=== PATIENT | male | born 1955 | race Caucasian/White ===

== ENCOUNTER 2022-08-20 10:39 | Emergency (ER) | payer MEDICARE, SELFPAY ==
[2022-08-20] VITALS (11 sets, daily range): BP systolic 105–126; BP diastolic 72–82; PULSE 67–80; RESP 18; TEMP 36.6; O2SAT 94–98; BMI 33.1
--- NOTE | 2022-08-20 11:07 | ED.ABDPAIN ---
HPI - Abdominal Pain General Time Seen by Provider: 11:07 Date Seen: 08/20/22 Chief Complaint: Abdominal Pain Stated Complaint: Abdominal pain Time Seen by Provider: 08/20/22 11:06 Source: patient, RN notes reviewed and old records reviewed Mode of arrival: ambulatory Limitations: no limitations History of Present Illness HPI narrative: Mr. Baeza is a very pleasant 66-year-old gentleman with a history of prostatitis, CABG with pacer placement, cholecystectomy, appendectomy who comes to the emergency room from the [facility] for evaluation of right lower quadrant pain. Patient notes that he has been dealing with a sore low back and had planned on seeing his primary MD Dr. Gomez in the near future. He states that he was pushing snow off the driveway but denies that it was anything significant when he had the onset of some discomfort in the right lateral and right lower abdomen yesterday afternoon. He states that he thought he may have pulled a muscle. However the pain increased and required Tylenol last night which she states did not really help. He has been noticing that he has had more loose stools than normal but no blood in those stools. He has not had any Tylenol today. He denies nausea or vomiting but does endorse feeling somewhat bloated. He has had in 8-10 lb weight gain over the winter but otherwise no other bag health events. He has not had diverticulitis, colitis, ulcerative colitis, Crohn's in the past. He notes that movement does increase his pain and taking a deep breath increases his discomfort. Related Data Home Medications Medication Instructions Recorded Confirmed atorvastatin 40 mg tablet 40 mg PO DAILY 08/20/22 08/20/22 baby aspirin 81 mg PO DAILY 08/20/22 08/20/22 carvedilol 12.5 mg tablet 12.5 mg PO BID 08/20/22 08/20/22 esomeprazole magnesium 20 mg 20 mg PO DAILY 08/20/22 08/20/22 capsule,delayed release (Nexium) hydrochlorothiazide 12.5 mg tablet 12.5 mg PO DAILY 08/20/22 08/20/22 losartan 100 mg tablet 50 mg PO DAILY 08/20/22 08/20/22 tamsulosin 0.4 mg capsule 0.4 mg PO DAILY 08/20/22 08/20/22 Allergies Allergy/AdvReac Type Severity Reaction Status Date / Time ciprofloxacin [From Cipro] Allergy Mild hepatic Verified 08/20/22 12:35 dysfunction lisinopril Allergy Mild Cough Verified 08/20/22 12:35 ofloxacin [From Floxin] Allergy itchy Verified 08/20/22 12:35 bactrim DS Allergy Mild Cholestatic Uncoded 08/20/22 12:35 hepatitis Review of Systems Status of ROS Reports: 10 or more systems reviewed and unremarkable except as noted in History and below Const Denies: fever, chills or night sweats ENMT Denies: throat pain, neck pain, difficulty swallowing or hoarseness Cardio Denies: chest pain, palpitations, swelling of feet/ankles, lightheadedness or shortness of breath with exertion Resp Denies: shortness of breath, cough or wheezing GI Reports: abdominal pain and diarrhea (Described as loose stools); Denies: nausea, vomiting, difficulty swallowing or blood in stool Denies: painful urination Musculo Reports: back pain; Denies: neck pain or extremity pain Neuro Denies: headache Allergy/Immuno Denies: wheezing PFSH PFSH Surgical History (Updated 08/20/22 @ 12:02 by Adelina Villalta MD) History of cholecystectomy ?Z90.49 - Acquired absence of other specified parts of digestive tract (ICD-10) Hx of appendectomy ?Z90.49 - Acquired absence of other specified parts of digestive tract (ICD-10) Hx of CABG ?Z95.1 - Presence of aortocoronary bypass graft (ICD-10) Social History Smoking Status: Never smoker Do you use any of these nicotine containing products: E-Cigarettes Second hand tobacco smoke exposure: No How often do you have a drink containing alcohol: monthly or less How many standard drinks containing alcohol do you have on a typical day: 1 or 2 How often do you have six or more drinks on one occasion: Never AUDIT-C Alcohol total score: 1 Non-prescribed substance use: denies use Exam Narrative: Exam Narrative: Alert and oriented. No acute distress. Somewhat guarded with movement. External ears eyes nose clear. Head is atraumatic normocephalic. Neck is supple no lymphadenopathy. Heart with regular rate and rhythm. Lungs are clear. Abdomen shows tenderness in the right lateral and right lower quadrant. Abdomen is obese but it is soft. No obvious hernias noted. Lower extremities with no edema. Moving all extremities. Const: Vital Signs, click to edit/add: Vital Signs - 24 hr 08/20/22 10:51 08/20/22 12:26 08/20/22 12:27 Temperature 97.8 F Pulse Rate 67 68 Pulse Rate [Right Pulse Oximeter] 80 Respiratory Rate 18 Blood Pressure 105/78 Blood Pressure [Ri ght Upper Arm] 126/82 Pulse Oximetry 97 97 97 Oxygen Delivery Me thod Room Air 08/20/22 12:30 08/20/22 12:31 08/20/22 12:45 Temperature Pulse Rate 68 67 67 Pulse Rate [Right Pulse Oximeter] Respiratory Rate Blood Pressure 107/76 Blood Pressure [Ri ght Upper Arm] Pulse Oximetry 95 95 98 Oxygen Delivery Me thod 08/20/22 13:00 08/20/22 13:01 08/20/22 13:15 Temperature Pulse Rate 70 71 68 Pulse Rate [Right Pulse Oximeter] Respiratory Rate Blood Pressure 107/72 Blood Pressure [Ri ght Upper Arm] Pulse Oximetry 94 95 95 Oxygen Delivery Me thod 08/20/22 13:30 08/20/22 13:32 Temperature Pulse Rate 69 69 Pulse Rate [Right Pulse Oximeter] Respiratory Rate Blood Pressure 111/73 Blood Pressure [Ri ght Upper Arm] Pulse Oximetry 96 97 Oxygen Delivery Me thod Documenting provider has reviewed patient's vital signs: yes Course Course Hospital Course: Differential diagnosis includes but is not limited to ureteral stone, pyelonephritis, UTI, colitis, internal hernia, diverticulitis, musculoskeletal discomfort. Will place an IV and patient will have CBC, comprehensive, CRP, lipase, urinalysis done. Patient is declining pain medications at this time. Will have him undergo CT of the abdomen and pelvis with contrast. Vital Signs Vital signs: Initial Vital Signs Temperature 97.8 F 08/20/22 10:51 Temperature Source Temporal Artery Scan 08/20/22 10:51 Pulse Rate 80 08/20/22 10:51 Respiratory Rate 18 08/20/22 10:51 Blood Pressure 126/82 08/20/22 10:51 Blood Pressure Mean 96 08/20/22 10:51 Blood Pressure Position Sitting 08/20/22 10:51 Pulse Oximetry 97 08/20/22 10:51 Oxygen Delivery Method Room Air 08/20/22 10:51 Vital Signs Temperature 97.8 F 08/20/22 10:51 Pulse Rate 80 08/20/22 10:51 Respiratory Rate 18 08/20/22 10:51 Blood Pressure 126/82 08/20/22 10:51 Pulse Oximetry 97 08/20/22 10:51 Oxygen Delivery Method Room Air 08/20/22 10:51 Temperature 97.8 F 08/20/22 10:51 Pulse Rate 69 08/20/22 13:32 Respiratory Rate 18 08/20/22 10:51 Blood Pressure 111/73 08/20/22 13:32 Pulse Oximetry 97 08/20/22 13:32 Oxygen Delivery Method Room Air 08/20/22 10:51 MDM - Abdominal Pain MDM Narrative Medical decision making narrative: 1. Abdominal pain-CT is reassuring with no evidence of colitis, kidney stone, hydronephrosis or other abnormality. Patient's laboratory values also reassuring with normal white count and CRP as well as urinalysis. Continue ibuprofen or Tylenol as needed for discomfort. Icing as needed. Follow-up with primary MD for ongoing discomfort. This seems more musculoskeletal than radicular in my assessment. This should improve over the next few days. 2. Disposition-home at this time. Return as needed. Medical Records Attestation: I reviewed the patient's medical records. Lab Data Attestation: I reviewed the patient's lab results. Labs: Lab Results 08/20/22 08/20/22 Range/Units 11:08 11:28 WBC 7.97 (4.50-11.00) K/uL RBC 5.60 (4.30-5.90) m/uL Hgb 15.8 (13.5-17.5) gm/dL Hct 45.2 (37.0-53.0) % MCV 81 (80-100) fL MCH 28 (26-34) pg MCHC 35 (32-36) gm/dL RDW Coeff of Jordi 13.2 (11.5-15.5) % Plt Count 147 (140-440) K/uL Neut % (Auto) 74.0 H (42.0-72.0) % Lymph % (Auto) 17.6 L (20-44) % Williamson % (Auto) 6.9 (0.0-11.0) % Eos % (Auto) 1.3 (0.0-7.0) % Baso % (Auto) 0.1 (0.0-3.0) % Neut # (Auto) 5.90 (1.7-7.0) K/uL Lymph # (Auto) 1.40 (0.90-2.90) K/uL Williamson # (Auto) 0.50 (0.00-0.90) K/UL Eos # (Auto) 0.10 (0.00-0.50) K/uL Baso # (Auto) 0.01 (0.00-0.30) K/uL Sodium 139 (135-149) mmol/L Potassium 4.1 (3.6-5.1) mmol/L Chloride 104 (96-114) mmol/L Carbon Dioxide 29 (20-32) mmol/L BUN 13 (7-30) mg/dL Creatinine 1.0 (0.5-1.5) mg/dL Estimated Creat Clear 71.25 Estimated GFR 84 ml/min Glucose 93 (60-115) mg/dL Calcium 8.9 (8.4-10.6) mg/dL Total Bilirubin 1.5 (0.1-1.5) mg/dL AST 20 (12-35) U/L ALT 33 (4-50) U/L Alkaline Phosphatase 45 (40-150) U/L C-Reactive Protein 0.7 (0.5-1.0) mg/dL Total Protein 7.1 (6.0-8.3) g/dL Albumin 4.3 (3.3-5.0) g/dL Lipase 79 (23-300) U/L Urine Color Light yellow (Yellow) Urine Appearance Clear (Clear) Urine pH 6.5 (5.0-8.5) Ur Specific [place] 1.010 (1.000-1.030) Urine Protein Negative (Negative) Urine Glucose (UA) Negative (Negative) Urine Ketones Negative (Negative) Urine Blood Negative (Negative) Urine Nitrite Negative (Negative) Urine Bilirubin Negative (Negative) Urine Urobilinogen 0.2 (0.2-1.0) Ur Leukocyte Esterase Negative (Negative) Urine RBC 0-2 (0-2) Urine WBC 0-2 (0-5) Ur Squamous Epith Cells None (None-Few) Urine Bacteria None (None) Imaging Data CT scan - abdomen: Attestation: I have reviewed the pertinent imaging results. My impression: I do not see any evidence of ureteral stone or obstruction Radiologist's impression: Lung bases: No suspicious pulmonary nodules or opacities. Linear atelectasis in the bilateral lower lobes. No basilar effusion or pneumothorax. Heart base: No basilar pericardial effusion. Partially visualized fibrillated electrodes and a aortic valve replacement. Abdomen/Pelvis: Liver: Non-cirrhotic morphology. Probable diffuse hepatic steatosis. No suspicious lesion. Gallbladder: Cholecystectomy. Bile ducts: No intra or extrahepatic biliary ductal dilatation. No choledocholithiasis. Spleen: Normal in size. Splenule. Adrenal glands: Unremarkable. Kidneys: Symmetric enhancement with no hydronephrosis or nephrolithiasis bilaterally. Right upper pole simple cyst measuring 5.2 x 4.7 cm. Additional bilateral subcentimeter cortical hypodensities are too small to characterize, statistically cysts. Pancreas: Unremarkable. Lymph nodes: No retroperitoneal, mesenteric, inguinal, or pelvic adenopathy by CT criteria. Bowel: Stomach is decompressed, limiting evaluation, but appears grossly normal. Small large bowel is normal in caliber, without obstruction. Appendix is not well visualized; however, there are no acute inflammatory changes in the right lower quadrant. No pneumatosis, pneumoperitoneum or portal venous gas. Vascular structures: No abdominal aortic aneurysm. Mild atherosclerotic calcification of the splenic artery. Proximal visceral vessels are patent. Patent hepatic, portal, splenic and bilateral renal veins. Peritoneum: No abdominal/pelvic ascites. Abdominal Wall: Tiny fat containing umbilical. Urinary bladder: Limited evaluation due to underdistention. No gross pathology. Reproductive structures: Marked prostatomegaly. Postsurgical changes in the bilateral scrotum seen with partially visualized right-sided hydrocele. MSK: No acute fractures. No aggressive appearing lytic or blastic osseous lesion. Minimal multilevel degenerative changes of the spine. IMPRESSION: 1. No acute pathology in the abdomen or pelvis. 2. Appendix is not well visualized; however, there are no acute inflammatory changes in the right lower quadrant. 3. Cholecystectomy. No intra or extrahepatic biliary ductal dilatation. 4. Probable diffuse hepatic steatosis. Discharge Plan Discharge Clinical Impression: Abdominal pain Patient Disposition: Home, Self-Care Condition: Improved Additional Instructions: Recommend ibuprofen or Tylenol as needed for discomfort. Icing of the area as needed. Follow-up with your primary MD for ongoing issues. Please return to the emergency room for worsening pain, onset of new symptoms and as needed. Prescriptions: No Action atorvastatin 40 mg tablet 40 mg PO DAILY carvedilol 12.5 mg tablet 12.5 mg PO BID losartan 100 mg tablet 50 mg PO DAILY hydrochlorothiazide 12.5 mg tablet 12.5 mg PO DAILY tamsulosin 0.4 mg capsule 0.4 mg PO DAILY esomeprazole magnesium [Nexium] 20 mg capsule,delayed release(DR/EC) 20 mg PO DAILY baby aspirin 81 mg PO DAILY Follow Up/Referrals: Ash Gomez MD [Primary Care Provider] - Stand Alone Forms: [facility] Info Instructions
[2022-08-20 11:18] LABS: Appearance Urine Clear (Clear); Bilirubin Urine Negative (Negative); Blood Urine Negative (Negative); Color Urine Light yellow (Yellow); Glucose Urine Negative (Negative); Ketones Urine Negative (Negative); Leukocyte Esterase Urine Negative (Negative); Nitrite Urine Negative (Negative); Protein Urine Negative (Negative); Urobilinogen Urine 0.2 (0.2-1.0); pH Urine 6.5 (5.0-8.5)
--- NOTE | 2022-08-20 11:28 | CRLHL7_ITS ---
For Patients: As a result of the Century Cures Act, medical imaging exams and procedure reports are released immediately into your electronic medical record. You may view this report before your referring provider. If you have questions, please contact your health care provider. INDICATION: Acute right lower/lateral abdominal pain TECHNIQUE: Contrast-enhanced CT of the abdomen and pelvis was obtained after administration of 100 cc Isovue 370 IV. Coronal and sagittal reformats were obtained on an independent workstation. COMPARISON: None. FINDINGS: Chest: Lung bases: No suspicious pulmonary nodules or opacities. Linear atelectasis in the bilateral lower lobes. No basilar effusion or pneumothorax. Heart base: No basilar pericardial effusion. Partially visualized fibrillated electrodes and a aortic valve replacement. Abdomen/Pelvis: Liver: Non-cirrhotic morphology. Probable diffuse hepatic steatosis. No suspicious lesion. Gallbladder: Cholecystectomy. Bile ducts: No intra or extrahepatic biliary ductal dilatation. No choledocholithiasis. Spleen: Normal in size. Splenule. Adrenal glands: Unremarkable. Kidneys: Symmetric enhancement with no hydronephrosis or nephrolithiasis bilaterally. Right upper pole simple cyst measuring 5.2 x 4.7 cm. Additional bilateral subcentimeter cortical hypodensities are too small to characterize, statistically cysts. Pancreas: Unremarkable. Lymph nodes: No retroperitoneal, mesenteric, inguinal, or pelvic adenopathy by CT criteria. Bowel: Stomach is decompressed, limiting evaluation, but appears grossly normal. Small large bowel is normal in caliber, without obstruction. Appendix is not well visualized; however, there are no acute inflammatory changes in the right lower quadrant. No pneumatosis, pneumoperitoneum or portal venous gas. Vascular structures: No abdominal aortic aneurysm. Mild atherosclerotic calcification of the splenic artery. Proximal visceral vessels are patent. Patent hepatic, portal, splenic and bilateral renal veins. Peritoneum: No abdominal/pelvic ascites. Abdominal Wall: Tiny fat containing umbilical. Urinary bladder: Limited evaluation due to underdistention. No gross pathology. Reproductive structures: Marked prostatomegaly. Postsurgical changes in the bilateral scrotum seen with partially visualized right-sided hydrocele. MSK: No acute fractures. No aggressive appearing lytic or blastic osseous lesion. Minimal multilevel degenerative changes of the spine. IMPRESSION: 1. No acute pathology in the abdomen or pelvis. 2. Appendix is not well visualized; however, there are no acute inflammatory changes in the right lower quadrant. 3. Cholecystectomy. No intra or extrahepatic biliary ductal dilatation. 4. Probable diffuse hepatic steatosis. Please note that all CT scans at this facility use dose modulation, iterative reconstruction, and/or weight-based dosing when appropriate to reduce radiation dose to as low as reasonably achievable. Dictated by Kwasi Cadena MD @ 08/20/2022 1:35:53 PM (Electronically Signed)
[2022-08-20 11:29] LABS: RBC Urine 0-2 (0-2); WBC Urine 0-2 (0-5)
[2022-08-20 12:00] LABS: Basophils Absolute Auto 0.01 K/uL (0.00-0.30); Basophils Percent Auto 0.1 % (0.0-3.0); Eosinophils Percent Auto 1.3 % (0.0-7.0); Hematocrit 45.2 % (37.0-53.0); Hemoglobin* 15.8 gm/dL (13.5-17.5); Immature Granulocytes Abs Auto 0.01 K/uL (0.00-0.30); Immature Granulocytes Pct Auto 0.1 %; Lymphocytes Percent Auto 17.6 % (20-44); Mean Corpuscular HGB Conc 35 gm/dL (32-36); Mean Corpuscular Hemoglobin 28 pg (26-34); Mean Corpuscular Volume 81 fL (80-100); Monocytes Percent Auto 6.9 % (0.0-11.0); Platelet Count* 147 K/uL (140-440); RDW Coefficient of Variation % 13.2 % (11.5-15.5); White Blood Count* 7.97 K/uL (4.50-11.00)
[2022-08-20 12:12] LABS: Albumin* 4.3 g/dL (3.3-5.0); Chloride* 104 mmol/L (96-114)
[2022-08-20 12:13] LABS: Potassium* 4.1 mmol/L (3.6-5.1); Slide Review Reflex No; Sodium* 139 mmol/L (135-149)
[2022-08-20 12:15] LABS: Est. Creatinine Clearance* 71.25; Estimated Glomerular Filt Rate 84 ml/min
[2022-08-20 12:16] LABS: Alanine Aminotransferase* 33 U/L (4-50); Alkaline Phosphatase* 45 U/L (40-150); Aspartate Amino Transferase* 20 U/L (12-35); Bilirubin Total* 1.5 mg/dL (0.1-1.5); Blood Urea Nitrogen* 13 mg/dL (7-30); Calcium* 8.9 mg/dL (8.4-10.6); Carbon Dioxide* 29 mmol/L (20-32); Glucose* 93 mg/dL (60-115); Lipase* 79 U/L (23-300); Total Protein* 7.1 g/dL (6.0-8.3)
[2022-08-20 12:19] LABS: C Reactive Protein* 0.7 mg/dL (0.5-1.0)
== END 2022-08-20 14:05 | disposition home or self-care (01) ==
PROVIDERS: Emergency Provider Family Medicine; PCP Family Medicine
DX: R10.9 Unspecified abdominal pain (principal)
CPT/HCPCS: 36415; 74177; 80053; 81001; 83690; 85025; 86140; 99284; 99285; Q9967

== ENCOUNTER 2024-05-23 09:16 | Emergency (ER) | payer MEDICARE, SELFPAY ==
[2024-05-23 09:34] VITALS: BP 157/90; PULSE 88; RESP 24; TEMP 36.6; O2SAT 98; BMI 32.7
--- NOTE | 2024-05-23 09:51 | CRLHL7_ITS ---
For Patients: As a result of the Century Cures Act, medical imaging exams and procedure reports are released immediately into your electronic medical record. You may view this report before your referring provider. If you have questions, please contact your health care provider. INDICATION: Cough and dyspnea COMPARISON: May 19, 2024 TECHNIQUE: PA and lateral views of the chest were acquired FINDINGS: TUBES AND LINES: Pacer with leads terminating in the expected location of the right atrium and right ventricle unchanged in position HEART AND MEDIASTINUM: Top-normal size heart. Median sternotomy. Similar appearance to the prior study. LUNGS AND PLEURAL SPACES: The lungs appear normal.The pleural spaces are unremarkable. OSSEOUS STRUCTURES: Age-appropriate appearance. No acute focal finding. IMPRESSION: No evidence of active pulmonary disease. Pacer normally located. Heart size top-normal. Median sternotomy and valve repair. Dictated by Jad Cuenca MD @ 05/23/2024 10:53:44 AM (Electronically Signed)
--- NOTE | 2024-05-23 10:20 | ED_ITS ---
HPI - General Adult General Time Seen by Provider: 10:21 Date Seen: 05/23/24 Chief complaint: Shortness of Breath/Dyspnea Stated complaint: Pneumonia Time Seen by Provider: 05/23/24 09:17 Source: patient and RN notes reviewed Mode of arrival: ambulatory Limitations: no limitations History of Present Illness HPI narrative: This 68-year-old male is coming into the ER with ongoing coughing. He has been on Augmentin since Sunday, did get a 3 day course of prednisone. He did not get a Z-Raúl but has taken this in the past. He has been sick about 10 days now. He had done a negative home COVID swab, they did not test for anything else. He really has not slept more than 2 hours at a time due to the coughing since the onset of this. He is having paroxysm of coughing to the point that he states he almost passes out now. He did not get pertusses testing, reviewed with him that there is currently a pertussis outbreak outbreak in [place]. He has not noted any fevers. He has had his thoracic aorta repaired with grafting, bicuspid valve replaced. He is not on any blood thinners so presumably the valve is tissue. He is supposed to be leaving for [place] tomorrow morning but states he cannot go with this cough. He was seen at [facility] urgent care on Sunday. Patient is not short of breath baseline, only become short of breath when he has the paroxysm is a of coughing. Patient also reports pacemaker. He does note that talking induces coughing. Related Data Home Medications ?Medication ?Instructions ?Recorded ?Confirmed atorvastatin 40 mg tablet 40 mg PO DAILY 08/20/22 08/20/22 baby aspirin 81 mg PO DAILY 08/20/22 08/20/22 carvedilol 12.5 mg tablet 12.5 mg PO BID 08/20/22 08/20/22 esomeprazole magnesium 20 mg 20 mg PO DAILY 08/20/22 08/20/22 capsule,delayed release (Nexium) hydrochlorothiazide 12.5 mg tablet 12.5 mg PO DAILY 08/20/22 08/20/22 losartan 100 mg tablet 50 mg PO DAILY 08/20/22 08/20/22 tamsulosin 0.4 mg capsule 0.4 mg PO DAILY 08/20/22 08/20/22 Previous Rx's ?Medication ?Instructions ?Recorded azithromycin 250 mg tablet See Rx Instructions PO .COMPLEX #6 05/23/24 tabs codeine 10 mg-guaifenesin 100 mg/5 5 - 10 ml PO Q4-6H PRN #120 mL 05/23/24 mL oral liquid (Virtussin AC) Allergies Allergy/AdvReac Type Severity Reaction Status Date / Time ciprofloxacin (From Cipro) Allergy Mild hepatic Verified 08/20/22 12:35 dysfunction lisinopril Allergy Mild Cough Verified 08/20/22 12:35 ofloxacin (From Floxin) Allergy itchy Verified 08/20/22 12:35 bactrim DS Allergy Mild Cholestatic Uncoded 08/20/22 12:35 hepatitis Review of Systems Status of ROS: Reports: 6 or more systems reviewed and unremarkable except as noted in History and below PFSH PFSH Surgical History Hx of appendectomy ?Z90.49 - Acquired absence of other specified parts of digestive tract (ICD- 10) History of cholecystectomy ?Z90.49 - Acquired absence of other specified parts of digestive tract (ICD- 10) Hx of CABG ?Z95.1 - Presence of aortocoronary bypass graft (ICD-10) Social History Smoking Status: Never smoker Do you use any of these nicotine containing products: E-Cigarettes Second hand tobacco smoke exposure: No How often do you have a drink containing alcohol: monthly or less How many standard drinks containing alcohol do you have on a typical day: 1 or 2 How often do you have six or more drinks on one occasion: Never AUDIT-C Alcohol total score: 1 Non-prescribed substance use: denies use Exam Const: Vital Signs, click to edit/add: Vital Signs - 24 hr 05/23/24 09:34 05/23/24 12:06 Temperature 97.8 F Pulse Rate [Pulse Oximeter] 88 80 Respiratory Rate 24 16 Blood Pressure [Ri ght Upper Arm] 157/90 H 152/100 H Pulse Oximetry 98 95 Oxygen Delivery Me thod Room Air Room Air This 68-year-old male is alert, interactive, no apparent distress. Any talking or asking him to breathe ease to listen to his lungs induce is coughing. There is no wheezing, no tachypnea. Lungs actually are clear. Face atraumatic, sclera clear, conjugate gaze. Neck supple, no adenopathy. Speech is normal, not hoarse in between coughing. CV regular, normal S1-S2, has a soft systolic murmur heard upper sternal borders better. He has no lower extremity edema. Documenting provider has reviewed patient's vital signs: yes Course Course ED Course: This patient is concerning for pertusses given his report of these paroxysm of coughing. There certainly is a pertusses outbreak. Preliminarily, I do not see any definite concerning consolidative pneumonia on his chest x-ray. We will do the triple viral swab to see if this could be post inflammatory from 1 of these 3 viruses. Will also do the PCR for pertussis. If chest x-ray is over-read as negative by Radiology and on and swabs are collected, likely to send him out on a Z-Raúl, will discuss cough medicine with him. The PCR for the protest this w ill not be back imminently but will treat for this. Can likely contact him outpatient regarding the results of the triple viral swab pending x-ray results. Reevaluation(s) Time of Reevaluation #1: 11:45 Reevaluation #1: Have reviewed negative triple viral swab and normal chest x-ray with patient. This does make me even more suspicious for protest this. We discussed that if it is pertusses, he needs to consider himself infectious until after he has completed the Z-Raúl. He would appreciate some Robitussin with codeine for bedtime which I will prescribe. Vital Signs Vital signs: Initial Vital Signs Respiratory Effort Normal, Spontaneous, Non-Labored 05/23/24 09:20 Respiratory Depth Normal 05/23/24 09:20 Respiratory Pattern Normal 05/23/24 09:20 Vital Signs Temperature 97.8 F 05/23/24 09:34 Pulse Rate 88 05/23/24 09:34 Respiratory Rate 24 05/23/24 09:34 Blood Pressure 157/90 H 05/23/24 09:34 Pulse Oximetry 98 05/23/24 09:34 Oxygen Delivery Method Room Air 05/23/24 09:34 Temperature 97.8 F 05/23/24 09:34 Pulse Rate 80 05/23/24 12:06 Respiratory Rate 16 05/23/24 12:06 Blood Pressure 152/100 H 05/23/24 12:06 Pulse Oximetry 95 05/23/24 12:06 Oxygen Delivery Method Room Air 05/23/24 12:06 Medical Decision Making Lab Data Labs: Lab Results 05/23/24 Range/Units 10:33 SARS-CoV-2 (PCR) Negative SARS-CoV-2 (Negative) Influenza Type A (PCR) Negative PCR FLU A (Negative) Influenza Type B (PCR) Negative PCR FLU B (Negative) RSV (PCR) Negative PCR RSV (Negative) Imaging Data Chest x-ray: Attestation: I have reviewed the pertinent imaging results. My impression: I do not see any acute infiltrate on my preliminary review. Radiologist's impression: Patient: MICHELLE HITCHCOCK Facility:?[facility] Patient ID:?[id number] Site Patient ID:?[id number]. Site :?[id number] Study:?XRay-Chest 2v-05/23/2024 10:18:21 AM Ordering Physician:?Christen Beltran Final Report: INDICATION: Cough and dyspnea COMPARISON: May 19, 2024 TECHNIQUE: PA and lateral views of the chest were acquired FINDINGS: TUBES AND LINES: Pacer with leads terminating in the expected location of the right atrium and right ventricle unchanged in position HEART AND MEDIASTINUM: Top-normal size heart. Median sternotomy. Similar appearance to the prior study. LUNGS AND PLEURAL SPACES: The lungs appear normal.The pleural spaces are unremarkable. OSSEOUS STRUCTURES: Age-appropriate appearance. No acute focal finding. IMPRESSION: No evidence of active pulmonary disease. Pacer normally located. Heart size top- normal. Median sternotomy and valve repair. Dictated by Jad Cuenca MD @ 05/23/2024 10:53:44 AM (Electronic Signature) Discharge Plan Discharge Clinical Impression: Acute upper respiratory infection Patient Disposition: Home, Self-Care Condition: Stable Instructions: Upper Respiratory Infection (ED), Pertussis (ED) Additional Instructions: Complete the Augmentin, start Z-Raúl. Have written for Robitussin with codeine to be used overnight. Can try a DayQuil or other comparable cough or cold medicine during the day. Coding is a narcotic, do not operate machinery or drive while on this. The pertusses PCR may take days to come back, we will notify you if it is positive. If you are not improving over the next 1-2 weeks, feel like you are worsening at any point or have difficulty breathing, increased respiratory symptoms, please seek re-evaluation. Activity Level: Activity as Tolerated Prescriptions: New azithromycin 250 mg tablet See Rx Instructions .ROUTE .COMPLEX Qty: 6 0RF Rx Instructions: For 250 mg dose pack: take 500 mg today (day 1), then 250 mg for 4 days (days 2-5) codeine-guaifenesin [Virtussin AC] 10-100 mg/5 mL liquid 5 - 10 ml PO Q4-6H PRNQty: 120 0RF No Action atorvastatin 40 mg tablet 40 mg PO DAILY carvedilol 12.5 mg tablet 12.5 mg PO BID losartan 100 mg tablet 50 mg PO DAILY hydrochlorothiazide 12.5 mg tablet 12.5 mg PO DAILY tamsulosin 0.4 mg capsule 0.4 mg PO DAILY esomeprazole magnesium [Nexium] 20 mg capsule,delayed release(DR/EC) 20 mg PO DAILY baby aspirin 81 mg PO DAILY Follow Up/Referrals: Ash Gomez MD [Primary Care Provider] - Stand Alone Forms: [email or web address] Info Instructions
[2024-05-23 11:24] LABS: PCR FLU A Negative PCR FLU A (Negative); PCR FLU B Negative PCR FLU B (Negative); PCR RSV Negative PCR RSV (Negative); SARS PCR* Negative SARS-CoV-2 (Negative)
[2024-05-23 12:06] VITALS: BP 152/100; PULSE 80; RESP 16; O2SAT 95
[2024-05-27 17:39] LABS: B. pertussis/parapertus Source Not Provided; Bordetella parapertussis PCR Not Detected; Bordetella pertussis by PCR Detected
== END 2024-05-23 12:22 | disposition home or self-care (01) ==
PROVIDERS: Emergency Provider Family Medicine; PCP Family Medicine
DX: J06.9 Acute upper respiratory infection, unspecified (principal)
CPT/HCPCS: 36415; 71046; 87631; 99283